=== PATIENT | male | born 1985 | race Caucasian/White ===

== ENCOUNTER 2021-04-16 11:36 | Emergency (ER) | payer OTHER ==
[~2021-04-16 11:36] MED LIST: IBUPROFEN600 MG PO; IBUPROFEN800 MG PO; KEFLEX CAP 500500 MG PO; LODINE CAP 300300 MG PO; PERCOCET 5-3251 EACH PO; PERCOCET 5/325 T1 EA PO; ROBITUSSIN AC480 ML PO; Voltaren Gel 1 % TOP
[2021-04-16] MEDS ORDERED: IBU600 MG PO (13:33)
== END 2021-04-16 14:37 | disposition home or self-care (01) ==
LOC: ER1 11:36
DX: J02.0 Streptococcal pharyngitis (principal); I10 Essential (primary) hypertension; F17.210 Nicotine dependence, cigarettes, uncomplicated
CPT/HCPCS: 87081; 87880; 96372; 99283; J0561; J1100; J1885